=== PATIENT | male | born 1955 | race Caucasian/White ===

== ENCOUNTER 2020-05-03 15:42 | Inpatient (IN) | payer MEDICARE, OTHER ==
[~2020-05-03] VITALS: Ht 177.8 cm; Wt 70.8 kg
--- NOTE | 2020-05-03 15:55 | NUR ---
received patient with cc of abdominal discomfort, nausea and vomiting since this am frm heroin widrawal , last use was @ 0500 am today , with initial complain of lower back pain 5/10 , pt is [id number] , afebrile , vss , attached to monitor , will continue to monitor .
--- NOTE | 2020-05-03 16:10 | NUR ---
pt noted with hr of 140'150' upon assessment at bedside , pt noted to be post ictal , unresponsive , snooring , , hr of sr 120's , o2 of 2lpm applied , suction pt for airway clearance , padded side rails applied , blood sugar obtained , attached to the monitor , piv inserted , dr quintero at bedside , pt noted with mild with witness that might be post ictal per md , will continue to monitor .
[2020-05-03 16:28] LABS: BASOPHILS % (AUTO) 0.1 % (0.0-2.0); EOSINOPHILS % (AUTO) 0.1 % (0.0-6.0); HEMATOCRIT 42 % (39-51); HEMOGLOBIN 13.7 g/dL (13.5-17.5); LYMPHOCYTES # (AUTO) 2.5 /CMM (0.8-4.8); LYMPHOCYTES % (AUTO) 22.6 % (20.0-44.0); MEAN CORPUSCULAR HGB CONC 33 g/dl (31.0-36.0); MEAN CORPUSCULAR VOLUME 100 fL (80-96); MONOCYTES % (AUTO) 8.6 % (2.0-12.0); NEUTROPHILS # (AUTO) 7.6 /CMM (1.8-8.9); NEUTROPHILS % (AUTO) 68.6 % (43.0-81.0); PLATELET COUNT (AUTO) 239 /CMM (150-450); RED BLOOD CELL COUNT(AUTO) 4.23 MIL/uL (4.5-6.0); WHITE BLOOD COUNT (AUTO) 11.1 K/uL (4.3-11.0)
[2020-05-03] MEDS ORDERED: IV NS 0.9% 1,000 ML BAG IV ONE (16:30)
--- NOTE | 2020-05-03 16:35 | NUR ---
transfer pt to radiology for ct head without contrast , pt stable , will continue to monitor .
[2020-05-03 16:36] LABS: CALCIUM, SERUM 10.2 mg/dL (8.5-10.1); CARBON DIOXIDE 19 mmol/L (21-32); CHLORIDE 97 mmol/L (98-107); CREATININE 1.2 mg/dL (0.6-1.3); GLUCOSE 159 mg/dL (74-106); POTASSIUM 3.2 mmol/L (3.5-5.1); SODIUM SERUM 139 mmol/L (136-145); UREA NITROGEN, BLOOD 18 mg/dL (7-18)
--- NOTE | 2020-05-03 16:40 | NUR ---
MOVE SHEET SUBMITTED AND CALLED FOR TELE BED.
[2020-05-03 16:42] LABS: ALANINE AMINOTRANSFERASE 21 U/L (12-78); ALCOHOL, BLOOD < 3 mg/dL (0-0); ALKALINE PHOSPHATASE 76 U/L (46-116); ASPARTATE AMINOTRANSFERASE 20 U/L (15-37); BILIRUBIN,DIRECT 0.2 mg/dL (0.0-0.2); BILIRUBIN,TOTAL 0.6 mg/dL (0.2-1.0); TOTAL PROTEIN, SERUM 8.5 g/dL (6.4-8.2)
[2020-05-03] MEDS ORDERED: CARI350T27 PO (17:03)
[2020-05-03] MEDS ORDERED: HYDR-3980 PO (17:03)
--- NOTE | 2020-05-03 17:26 | NUR ---
URINE SPECIMEN COLLECTED , LABELED AND SENT TO LAB
[2020-05-03] MEDS: LEVETIRACETAM (500MG) 1,000 MG in IV NS 0.9% 100 ML IV SCH (18:00)
--- NOTE | 2020-05-03 18:08 | NUR ---
GOT BED 107.
--- NOTE | 2020-05-03 18:20 | NUR ---
REPORT GIVEN TO CARMELITA FOR CONTINUITY OF CARE , ALL QUESTIONS ANSWERED ,
[2020-05-03] MEDS ORDERED: MAGNESIUM HYDROXIDE 30 ML UDC PO PRN (18:30)
[2020-05-03] MEDS ORDERED: TEMAZEPAM 15 MG CAPSULE PO PRN (18:30)
[2020-05-03] MEDS ORDERED: MAG HYDROX/AL HYDROX/SIMETH 30 ML UDC PO PRN (18:30)
[2020-05-03] MEDS ORDERED: HYDROCODONE/APAP 5/325MG TABLET PO PRN (18:30)
[2020-05-03] MEDS ORDERED: ONDANSETRON HCL/PF 4 MG/2 ML VIAL IVP PRN (18:30)
[2020-05-03] MEDS ORDERED: Z GUARD REMEDY 2 OZ OINT TP PRN (18:30)
[2020-05-03] MEDS ORDERED: ACETAMINOPHEN 325 MG TABLET PO PRN (18:30)
--- NOTE | 2020-05-03 19:05 | NUR ---
RN ADMITTING NOTE RECEIVED PATIENT FROM ER VIA MIKE ACCOMPANIED BY ANASTACIA NEAL AND ANOTHER ER STAFF, TRANSFERRED TO BED VIA 2 PERSON ASSIST. PATIENT IS ALERT AND ORIENTED XA. PATIENT ON 2 L OXYGEN VIA NC WITH RESPIRATIONS EVEN AND UNLABORED, SATURATING AT 100%, SR ON THE MONITOR, HR IS 69. COMPREHENSIVE PHYSICAL ASSESSMENT DONE. NO SKIN ISSUES NOTED. PATIENT IS AMBULATORY WITH ASSIST. NOTED IV LINE AT RFA G18, PATENT AND FLUSHING WELL. STARTED PATIENT ON IV FLUID OF NS REGULATED PER ORDERS. CALL LIGHT WITHIN REACH, SAFETY MEASURES AND SEIZURE PRECAUTIONS IN PLACE, WILL CONTINUE MONITOR AND ASSESS THROUGHOUT THE SHIFT. WILL CARRY OUT MD ORDERS ACCORDINGLY.
[2020-05-03 20:00] VITALS: BP 132/80
[2020-05-03] MEDS: POTASSIUM CL. PREMIX PERIPHER. 50 ML IV SCH ×3 (21:29→23:18)
[2020-05-03] MEDS: LORAZEPAM INJ 2 MG/ML VIAL IV PRN (21:31)
[2020-05-03] MEDS: IV NS 0.9% 1,000 ML IV PRN (21:31)
[2020-05-04] VITALS: BP 152/79
[2020-05-04] MEDS: POTASSIUM CL. PREMIX PERIPHER. 50 ML IV SCH (00:17)
[2020-05-04] MEDS: HYDROCODONE/APAP 10/325MG TABLET PO PRN ×4 (00:45→14:52)
[2020-05-04 04:00] VITALS: BP 138/85
[2020-05-04] MEDS: LEVETIRACETAM (500MG) 1,000 MG in IV NS 0.9% 100 ML IV SCH (05:30)
[2020-05-04 06:30] LABS: BASOPHILS % (AUTO) 0.3 % (0.0-2.0); EOSINOPHILS % (AUTO) 0.3 % (0.0-6.0); HEMATOCRIT 38 % (39-51); HEMOGLOBIN 12.7 g/dL (13.5-17.5); LYMPHOCYTES # (AUTO) 1.1 /CMM (0.8-4.8); LYMPHOCYTES % (AUTO) 14.6 % (20.0-44.0); MEAN CORPUSCULAR HGB CONC 34 g/dl (31.0-36.0); MEAN CORPUSCULAR VOLUME 97 fL (80-96); MONOCYTES # (AUTO) 0.5 /CMM (0.1-1.30); MONOCYTES % (AUTO) 7.1 % (2.0-12.0); NEUTROPHILS # (AUTO) 5.8 /CMM (1.8-8.9); NEUTROPHILS % (AUTO) 77.7 % (43.0-81.0); PLATELET COUNT (AUTO) 168 /CMM (150-450); RED BLOOD CELL COUNT(AUTO) 3.88 MIL/uL (4.5-6.0); WHITE BLOOD COUNT (AUTO) 7.5 K/uL (4.3-11.0)
[2020-05-04] MEDS: LORAZEPAM INJ 2 MG/ML VIAL IV PRN ×3 (06:34→14:51)
[2020-05-04 06:40] LABS: CALCIUM, SERUM 9.1 mg/dL (8.5-10.1); CREATININE 0.8 mg/dL (0.6-1.3); MAGNESIUM 2.4 mg/dL (1.8-2.4); PHOSPHORUS 2.6 mg/dL (2.5-4.9); POTASSIUM 4.2 mmol/L (3.5-5.1)
[2020-05-04 06:41] LABS: THYROID STIMULATING HORMONE 0.717 uIU/mL (0.358-3.74)
--- NOTE | 2020-05-04 07:10 | NUR ---
PT ASLEEP IN BED W HOB ELEVATED. SEIZURE PRECAUTIONS IMPLEMENTED. SUCTION EQUIPMENT AT BEDSIDE, SIDE RAILS PADDED, SUPPLEMENTAL OXYGEN AVAILABLE AT BEDSIDE. NC RUNNING 2L/MIN SPO2 100%. SR ON TELE 60S-80S. RFA 18 KACY INTACT WITH NS RUNNING AT PRESCRIBED RATE. NO SIGNS OF INFILTRATION. DRESSING DRY INTACT. PT SHOWS NO SIGNS OF DISTRESS. RESPIRATION EVEN UNLABORED AND SKIN WARM FLUSHED. WILL MONITOR NEURO STATUS AND LOC THROUGHOUT SHIFT AND MAINTAIN SEIZURE PRECAUTIONS. ALL HOSPITAL POLICY SAFETY PRECAUTIONS IMPLEMENTED.
[2020-05-04 08:00] VITALS: BP 127/68
[2020-05-04] MEDS ORDERED: LEVETIRACETAM (500MG) 1,000 MG in IV NS 0.9% 100 ML IV SCH (09:00)
--- NOTE | 2020-05-04 09:00 | NUR ---
PT REFUSED FLU VACCINE. EDUCATED ON PURPOSE AND BENEFITS. PT DECLINED.
[2020-05-04] MEDS: IV NS 0.9% 1,000 ML IV PRN (09:33)
[2020-05-04 12:00] VITALS: BP 123/69
[2020-05-04 14:00] VITALS: BP 112/70
[2020-05-04] MEDS ORDERED: LEVE1000 PO (14:11)
--- NOTE | 2020-05-04 15:02 | NUR ---
PATIENT DISCHARGE PER [employer] [employer] [facility] PENDING PLACEMENT NEED DETOX CENTER,WILL FOLLOW UP.
[2020-05-04 16:00] VITALS: BP 123/69
--- NOTE | 2020-05-04 17:12 | NUR ---
PT DISCHARGED TO IN PRIVATE VEHICLE. IV REMOVED NO SIGNS OF BLEEDING. TOLERATED WELL. PT VS WNL. STABLE AND STEADY. BROUGHT TO CAR VIA WHEELCHAIR. ALL BELONGINGS BROUGHT AND PT DENIED QUESTIONS OR CONCERNS.
--- NOTE | 2020-05-06 10:19 | NUR ---
Beef Specialist consult requested by Mansoor Vines NP. SW unable to meet with the patient, as patient was discharged.
--- NOTE | 2020-05-06 11:53 | NUR ---
This SW received a call from patient's Gabriela Loza . Gabriela wanted more resource information for the patient regarding heroin use. SW provided the following referrals: [facility] ([facility]) ; [facility] [id number] [facility] [place]. [place] [id number] ; [address] [address] [address] [address] , ; [facility] [place]
== END 2020-05-04 17:15 | disposition home or self-care (01) | DRG 101 ==
LOC: ER 15:54 → TELE1 18:29 → MEDSG1 05-04 15:04
PROVIDERS: ADMIT Nurse Practitioner Acute Care; ATTEND Nurse Practitioner Acute Care
DX: G40.409 Other generalized epilepsy and epileptic syndromes, not intractable, without status epilepticus (principal); F11.13 Opioid abuse with withdrawal; F13.139 Sedative, hypnotic or anxiolytic abuse with withdrawal, unspecified; Z98.890 Other specified postprocedural states; G89.29 Other chronic pain; Z79.891 Long term (current) use of opiate analgesic; E87.6 Hypokalemia; D72.829 Elevated white blood cell count, unspecified; F19.10 Other psychoactive substance abuse, uncomplicated
CPT/HCPCS: 36415; 70450-TC; 71045-TC; 80048-TC; 80061-TC; 80076-TC; 82962-TC; 83735-TC; 84100-TC; 84443-TC; 85025-TC; 85730-TC; 87081-TC; 95819-TC; 97116-TC; 97530-TC; C9803; G0378; G0480; J1953; J2060; J3480; J3490; J7030